=== PATIENT | male | born 1985 ===

== ENCOUNTER 2020-08-27 19:06 | Emergency (ER) | payer OTHER ==
[~2020-08-27] VITALS: Ht 188 cm; Wt 95.2 kg
[2020-08-27] MEDS ORDERED: CEPH500 PO (21:19)
== END 2020-08-27 21:30 | disposition home or self-care (01) ==
LOC: ER 19:06
DX: S62.632B Displaced fracture of distal phalanx of right middle finger, initial encounter for open fracture (principal); K21.9 Gastro-esophageal reflux disease without esophagitis; F17.210 Nicotine dependence, cigarettes, uncomplicated; W20.8XXA Other cause of strike by thrown, projected or falling object, initial encounter
CPT/HCPCS: 73140; 99283-25; A9270

== ENCOUNTER 2025-05-19 20:03 | Emergency (ER) | payer OTHER ==
[~2025-05-19] VITALS: Ht 188 cm; Wt 107.0 kg
[~2025-05-19 20:03] MED LIST: CEPH500 PO
[2025-05-19 20:13] VITALS: BP 141/102
== END 2025-05-19 22:25 | disposition home or self-care (01) ==
LOC: ER 20:03
DX: S83.92XA Sprain of unspecified site of left knee, initial encounter (principal); K21.9 Gastro-esophageal reflux disease without esophagitis; Z79.2 Long term (current) use of antibiotics; F17.290 Nicotine dependence, other tobacco product, uncomplicated; W50.0XXA Accidental hit or strike by another person, initial encounter; Y93.72 Activity, wrestling
CPT/HCPCS: 73562-LT; 99283-25; A9270